=== PATIENT | male | born 1985 | race Hispanic/Latino ===

== ENCOUNTER 2019-11-13 14:17 | Emergency (ER) | payer OTHER ==
[~2019-11-13] VITALS: Ht 177.8 cm; Wt 92.0 kg
[~2019-11-13 14:17] MED LIST: ACYCLOVIR200 MG PO; COLACE100 MG PO; DOCQLACE100 MG PO; MIRALAX3350 N1 PO; NAPROSYN500 MG PO; NO HOME MEDS; TERBINAFINE250 MG PO
[2019-11-13] MEDS ORDERED: AMOXICILLIN875 MG PO (16:26)
[2019-11-13 16:35] VITALS: BP 132/74
--- NOTE | 2019-11-16 17:21 | NUR ---
Patient notified of +Covid results by Alex Vanegas building insulation installer.
== END 2019-11-13 16:35 | disposition home or self-care (01) | DRG 179 ==
LOC: ED 14:17
DX: U07.1 COVID-19 (principal)

== ENCOUNTER 2019-11-27 09:08 | Emergency (ER) | payer SELFPAY ==
[~2019-11-27 09:08] MED LIST changes: +AMOXICILLIN875 MG PO
== END 2019-11-27 09:43 | disposition left against medical advice (07) | DRG 951 ==
LOC: ED 09:08 → LWOBS 09:42
DX: Z53.21 Procedure and treatment not carried out due to patient leaving prior to being seen by health care provider (principal)